=== PATIENT | female | born 1940 | race Caucasian/White ===

== ENCOUNTER 2018-12-24 05:41 | Inpatient (IN) ==
--- NOTE | 2018-12-17 10:52 | PAT Medication Instructions ---
Medication Instructions Date of Service December 17, 2018 Home Medications Lactobacillus acidophilus 1 tab PO DAILY acetaminophen [Tylenol Arthritis Pain] 1,300 mg PO Q12H PRN albuterol sulfate 1 puff INHALATION BID PRN atorvastatin 10 mg PO HS cetirizine 10 mg PO QAM levothyroxine 50 mcg PO QAM lisinopril 20 mg PO QAM meclizine 25 mg PO BID PRN DO NOT take the morning of surgery Lactobacillus acidophilus 1 tab PO DAILY cetirizine 10 mg PO QAM lisinopril 20 mg PO QAM Take morning of surgery With a small sip of water, OTHERWISE NOTHING TO EAT OR DRINK AFTER MIDNIGHT: acetaminophen [Tylenol Arthritis Pain] 1,300 mg PO Q12H PRN (if needed, may be taken up to four hours before surgery) albuterol sulfate 1 puff INHALATION BID PRN (if needed, and bring with you to the hospital) levothyroxine 50 mcg PO QAM meclizine 25 mg PO BID PRN (if needed) Take evening before surgery acetaminophen [Tylenol Arthritis Pain] 1,300 mg PO Q12H PRN (if needed) albuterol sulfate 1 puff INHALATION BID PRN (if needed) atorvastatin 10 mg PO HS meclizine 25 mg PO BID PRN (if needed) Other Notes If you have any questions please call us at [phone] or [phone] or [phone] or [phone]
--- NOTE | 2018-12-17 11:38 | Anesthesiology Consultation ---
Date of Service December 17, 2018 Assessment & Plan (1) Encounter for pre-operative examination: PCP 12/21/18 = "CT shows no concerning lesions that require any intervention now. But there are several small nodulesbecause of her history of smoking she should be checked with a CT scan again in 1 year. She is cleared for surgery." Chart Review Chart Review: Acceptable Risk for Surgery and Patient seen in Pre Admission Testing Teaching & Discussion Instructed NPO after midnight before surgery, except medications with 15 cc of water. Medication instructions provided according to the PAT guidelines. History Surgery Operation Date: 12/24/18 07:45 Proposed Procedures p C6 Corpectomy, C5-C7 Anterior Cervical Fusion with Spinal Cord Monitoring - Federico Singleton, Height/Weight Height: 5 ft 1 in Weight: 71.4 kg Allergies Allergy/AdvReac Type Severity Reaction Status Date / Time codeine AdvReac Intermediate shakes Verified 12/12/18 12:04 Medications Home Medications Medication Instructions Recorded Confirmed Last Taken Lactobacillus acidophilus 1 tab PO DAILY 12/12/18 12/12/18 Unknown acetaminophen [Tylenol Arthritis 1,300 mg PO Q12H PRN 12/12/18 12/12/18 Unknown Pain] albuterol sulfate 1 puff INHALATION BID PRN 12/12/18 12/12/18 Unknown atorvastatin 10 mg PO HS 12/12/18 12/12/18 Unknown cetirizine 10 mg PO QAM 12/12/18 12/12/18 Unknown levothyroxine 50 mcg PO QAM 12/12/18 12/12/18 Unknown lisinopril 20 mg PO QAM 12/12/18 12/12/18 Unknown meclizine 25 mg PO BID PRN 12/12/18 12/12/18 Unknown Past Medical History Medical History Cancer SKIN Chronic kidney disease STAGE 3. MONITORS LEVELS. Chronic neck and back pain Chronic obstructive pulmonary disease Using albuterol once or twice per week or before exercise (but patient no longer able to exercise due to back pain) Degenerative disc disease GERD (gastroesophageal reflux disease) Hyperlipidemia Hypertension Hypothyroidism Osteoarthritis Osteoporosis Vertigo Exercise / Class Metabolic Activity III < 4 Walking/Shop/Light housework (Limited by back pain, denies CP or SOB with ambulation) Past Family History Family History Sister Family history of diabetes mellitus Mother Family history of diabetes mellitus Past Surgical History Surgical History History of appendectomy History of cataract surgery BILATERAL History of cholecystectomy History of colonoscopy History of esophagogastroduodenoscopy (EGD) History of hysterectomy History of surgical removal of lesion SKIN CANCER FROM NOSE History of tooth extraction Past Anesthesia History No Hx of Anesthesia Complications and No Family Hx of Anesthesia Complications History of PONV No Hx of Motion Sickness and History of PONV (single episode with appy many years ago) STOP BANG Total 2 Social History Smoking Status: Former smoker tobacco type: cigarettes Smoking cigarettes per day: 1/2 PPD X 44 YEARS Do You Dip or Chew Tobacco: No Smoking End Date: 2010 Hx Alcohol Use: Yes Alcohol type: beer and wine alcohol intake frequency: holidays/special occasions only Hx Substance Use: No substance use type: does not use Review of Systems Pt denies any recent chest pain, shortness of breath, palpitations, cough, fever or URI. +UTI currently on ABX by PCP, will complete 12/21 Physical Exam Vital Signs BP: 155/81 (pt states this is high for her, takes BP at home, PCP monitoring) P: 59bpm SPO2: 94% RA T: 98.1 F R: 18 ENMT Mouth: + dentures (full set), + edentulous and + small oral opening Thyromental Distance: > or= 3.5 Finger Breadths (3.5) Mallampati Class: II Neck + short neck and + limited neck extension (moderately limited 2/2 stenosis and pain) Respiratory normal respiratory effort Auscultation: lungs clear to auscultation bilaterally Cardiovascular Rate/Rhythm: regular rhythm and + bradycardic Heart Sounds: no murmur Vessels: no carotid bruit Extremities: no edema Testing Laboratory Results 12/17/18 11:21 12/17/18 11:21 PT 10.0 Seconds (9.0-12.0) 12/17/18 11:21 INR 1.0 (0.9-1.1) 12/17/18 11:21 APTT 25.3 Seconds (21.0-31.0) 12/17/18 11:21 Urine Color Yellow 12/17/18 11:21 Urine Appearance Clear (Clear) 12/17/18 11:21 Urine pH 5.0 (4.5-7.5) 12/17/18 11:21 Ur Specific [place] 1.015 (1.000-1.030) 12/17/18 11:21 Urine Protein Negative (Negative) 12/17/18 11:21 Urine Glucose (UA) Negative (Negative) 12/17/18 11:21 Urine Ketones Negative (Negative) 12/17/18 11:21 Urine Nitrite Negative (Negative) 12/17/18 11:21 Ur Leukocyte Esterase Negative (Negative) 12/17/18 11:21 Blood Type O Positive 12/17/18 11:21 Antibody Screen NEGATIVE 12/17/18 11:21 Electrocardiogram Date: 12/17/18 Findings: + SB @ (58) Chest X-Ray Date: 12/14/18 IMPRESSION: 1. No acute findings in the chest. 2. Density at the right lung base, near the right heart border, is favored to represent overlap of structures with epicardial fat pad, though a nodules not excluded. Consider CT of the chest for further evaluation. *note sent to PCP re: abnormal CXR. Stress Test Date: 03/18/15 Type: DSE DSE is normal without EKG or echo evidence of inducible ischemia. No chest pain occurred with this test. Adequate dobutamine stress test is 86% of the age- predicted maximal target heart rate was obtained. Other Testing CT Chest w/o Contrast Impression: No lesion to correlate with the finding on recent chest radiograph, which probably represented overlapping structures or epicardial fat. Scattered small solid pulmonary nodules, measuring up to 5mm. Per the Fleischner Society Guidelines, for a low risk patient, no additional follow up is recommended. For a high risk patient, consider optional CT follow up in 12 months.
[2018-12-17 13:38] LABS: Basophils # (auto) 0.03 K/uL (0-0.2); Basophils % (auto) 0.3 %; Eosinophils % (auto) 2.3 %; Hematocrit (blood only) 41.6 % (37-47); Hemoglobin 14.1 g/dL (12.0-16.0); Immature Granulocytes # (auto) 0.02 K/uL (0.00-0.02); Immature Granulocytes % (auto) 0.2 %; Lymphocytes # (auto) 3.46 K/uL (1.2-3.4); Lymphocytes % (auto) 40.2 %; Mean Corpuscular Hgb Conc 33.9 g/dL (32-36); Mean Corpuscular Volume 95.2 fL (80-100); Mean Platelet Volume 12.8 fL (7.4-10.4); Monocytes # (auto) 0.84 K/uL (0.11-0.59); Monocytes % (auto) 9.8 %; Neutrophils # (auto) 4.05 K/uL (1.4-6.5); Neutrophils % (auto) 47.2 %; Platelet Count 183 K/uL (130-400); RDW Coefficient of Variation 12.8 % (11.5-14.5); RDW Standard Deviation 44.6 fL (36.4-46.3); Red Blood Count 4.37 M/uL (4.2-5.4)
[2018-12-17 13:46] LABS: Partial Thromboplastin Ratio 0.9; Partial Thromboplastin Time 25.3 Seconds (21.0-31.0)
[2018-12-17 14:07] LABS: Appearance Urine Clear (Clear); Bilirubin Urine Negative (Negative); Blood Urine Negative (Negative); Color Urine Yellow; Glucose Urine UA Negative (Negative); Ketones Urine Negative (Negative); Leukocyte Esterase Urine Negative (Negative); Nitrite Urine Negative (Negative); Protein Urine Negative (Negative); Specific Gravity Urine 1.015 (1.000-1.030); Urobilinogen Urine Negative (Negative)
[2018-12-17 14:09] LABS: BUN Creatinine Ratio 12.7 (10-20); Calcium 9.8 mg/dl (8.5-10.1); Creatinine Clr Calc Pharmacy 41.1 ml/min; Est GFR (Non-African American) 52.6; Potassium 4.1 mmol/L (3.5-5.1)
[2018-12-24] MEDS ORDERED: LR 15ML/HR IV SCH (06:00)
[2018-12-24] MEDS ORDERED: CEFAZOLIN 1000MG 1,000 MG/7.5 ML SYR IV SCH (06:00)
[2018-12-24] MEDS ORDERED: fentaNYL citrate 100 MCG/2 ML VIAL ONE ×3 (06:37→08:25)
[2018-12-24] MEDS ORDERED: MIDAZOLAM HCL 1 MG/ML 2ML VIAL ONE (06:38)
[2018-12-24] MEDS ORDERED: BACITRACIN INJ 50,000 UNIT VIAL ONE (07:00)
[2018-12-24] MEDS ORDERED: ATROPINE SULFATE 0.1 MG/ML 10ML SYR IV PRN (07:26)
[2018-12-24] MEDS ORDERED: PROMETHAZINE HCL 12.5 MG in SODIUM CHLORIDE 0.9% 50 ML IV PRN (07:26)
[2018-12-24] MEDS ORDERED: METOCLOPRAMIDE HCL INJ 5 MG/ML 2 ML VIAL IV PRN (07:26)
[2018-12-24] MEDS ORDERED: ePHEDrine sulfate 50 MG/ML AMP IV PRN (07:26)
[2018-12-24] MEDS ORDERED: ONDANSETRON INJ 2 MG/ML 2 ML VIAL IV PRN ×2 (07:26→11:07)
[2018-12-24] MEDS ORDERED: HYDROmorphone INJ 1 MG/ML SYRINGE IV PRN (07:26)
--- NOTE | 2018-12-24 07:34 | History & Physical Bridge Note ---
Date of Service December 24, 2018 History & Physical Bridge Note I have examined the patient, reviewed the History & Physical and in the interval since the performance of the History & Physical I have noted the following changes of clinical significance: no changes noted
--- NOTE | 2018-12-24 07:35 | History & Physical Report ---
Date of Service December 24, 2018 Assessment & Plan (1) Cervical stenosis of spinal canal: C6 corpectomy anterior discectomy and fusion C5-C7 Present on Admission?: Yes History of Present Illness Chief Complaint: Neck and arm pain Primary Care Provider: MAURICIO Shafer This is a 70-year-old female who presents with chronic persistent neck and arm pain. After failing extensive course of nonoperative care is here for surgical intervention. Allergies Allergy/AdvReac Type Severity Reaction Status Date / Time codeine AdvReac Intermediate shakes Verified 12/24/18 06:03 Home Medications Home Medications Medication Instructions Recorded Confirmed Type acetaminophen [Tylenol Arthritis 1,300 mg PO Q12H PRN 12/12/18 12/24/18 History Pain] albuterol sulfate 1 puff INHALATION BID PRN 12/12/18 12/24/18 History atorvastatin 10 mg PO HS 12/12/18 12/24/18 History cetirizine 10 mg PO QAM 12/12/18 12/24/18 History levothyroxine 50 mcg PO QAM 12/12/18 12/24/18 History lisinopril 20 mg PO QAM 12/12/18 12/24/18 History meclizine 25 mg PO BID PRN 12/12/18 12/24/18 History Past Med/Surg History Medical History Cancer SKIN Chronic kidney disease STAGE 3. MONITORS LEVELS. Chronic neck and back pain Chronic obstructive pulmonary disease Using albuterol once or twice per week or before exercise (but patient no longer able to exercise due to back pain) Degenerative disc disease GERD (gastroesophageal reflux disease) Hyperlipidemia Hypertension Hypothyroidism Osteoarthritis Osteoporosis Vertigo Surgical History History of appendectomy History of cataract surgery BILATERAL History of cholecystectomy History of colonoscopy History of esophagogastroduodenoscopy (EGD) History of hysterectomy History of surgical removal of lesion SKIN CANCER FROM NOSE History of tooth extraction Family History Sister Family history of diabetes mellitus Mother Family history of diabetes mellitus Social History Preferred Language: Turkmen Communication Ability: Effective Senior Sharepoint Architect Required: No Beliefs That Will Affect Care: Islam Islam Beliefs: SHINTO - INDUSTRIAL NURSE PRE OP Current Living Situation: Spouse Other Information That Helps Us Care for You: No Feels Safe at Home: Yes Safety Concerns: Feels Safe At This Time Smoking Status: Former smoker Tobacco Type: cigarettes ; Cigarettes Per Day: 1/2 PPD X 44 YEARS ; Do You Dip or Chew Tobacco: No ; Smoking End Date: 2010 ; Second Hand Exposure: No ; Tobacco Cessation Education Requested by Patient: No Hx Alcohol Use: Yes Alcohol type: beer and wine Hx Substance Use: No Physical Exam Physical Exam: Patient is alert and oriented neurologically intact. Results & Data Vital Signs (Past 12 Hours) Vital Signs Temp Pulse Resp BP Pulse Ox 12/24/18 06:10 36.6 C 63 20 186/80 H 96
[2018-12-24] MEDS ORDERED: HYDROmorphone INJ 2 MG/ML SYR/VIAL ONE (08:07)
[2018-12-24] MEDS ORDERED: DEXAMETHASONE SOD INJ 4 MG/ML VIAL ONE (08:12)
[2018-12-24] MEDS ORDERED: SUCCINYLCHOLINE CHLORIDE 20 MG/ML 10 ML VIAL ONE (08:12)
[2018-12-24] MEDS ORDERED: ROCURONIUM BROMIDE 10 MG/ML 5 ML VIAL ONE (08:12)
[2018-12-24] MEDS ORDERED: NEOSTIGMINE METHYLSULFATE 1 MG/ML 10ML VIAL ONE (08:12)
[2018-12-24] MEDS ORDERED: ONDANSETRON INJ 2 MG/ML 2 ML VIAL ONE (08:12)
[2018-12-24] MEDS ORDERED: PROPOFOL IV EMULSION 10 MG/ML 20 ML VIAL IV ONE (08:12)
[2018-12-24] MEDS ORDERED: GLYCOPYRROLATE 0.2 MG/ML VIAL ONE (08:12)
[2018-12-24] MEDS ORDERED: LIDOCAINE HCL 2% 2 ML VIAL/AMP(20MG/ML) INFIL ONE (08:12)
[2018-12-24] MEDS ORDERED: LARYING-O-JET KIT (LTA) ONE (08:45)
[2018-12-24] MEDS ORDERED: FLOSEAL HEMOSTATIC MATRIX 10ML TOP ONE (09:04)
--- NOTE | 2018-12-24 09:23 | Operative Report ---
Post Operative Report Pre & Post Diagnosis Operation Date: 12/24/18 07:45 Pre-Op Diagnosis: Cervical spinal stenosis with myeloradiculopathy Post-Op Diagnosis: Same Procedure Operation Date: 12/24/18 07:45 Actual Procedures #1 anterior cervical corpectomy C6 with bilateral foraminotomies. #2 anterior cervical arthrodesis C5-C7. #3 placement of titanium Spira cage 19 mm in height C5-C7. #4 placement of freitas plate and screws from C5-C7. #5 placement of locally harvested morselized autograft combined with DBM and interbody cage. Surgeon Federico Singleton, Marketing Mgr Winsome Zuleta Estimated Blood Loss 25 Findings Consistent with Post-Op Diagnosis Specimens None Indications This is a 78-year-old female presents with above-mentioned diagnosis after failing extensive course of nonoperative care is here for surgical intervention. Description of Procedure Patient was met with identified and informed consent obtained. She was then taken to the operative suite underwent intubation placed in supine position Moisés table with a Sanchez repairer cylinder heads. All bony prominences well-padded eyes inspected to ensure no external pressure placed upon the peer at this point the anterior cervical spine is prepped and draped in normal sterile fashion. The assistance of fluoroscopy identified the C6 vertebral body and a transverse incision was placed along the right anterior aspect of the cervical spinal sinus region. Sharp dissection with the assistance of bipolar left cautery was performed down to and exposing the anterior cervical spine from C5-C7. Self- retaining retractors placed. Then performed a complete discectomy of C5-6 out to the uncovertebral joints bilaterally followed by see 6 7. [place] distracting pins were then placed in C5 and C7 to distract across the C6 vertebral body. A complete corpectomy was then performed including removal of all posterior annular fibers longitudinal ligament and bilateral foraminotomies performed. Endplates were then burred to subcortical bleeding bone and a 19 mm Spira titanium cage filled with local autograft and DBM tapped in position. Dis traction apparatus was removed and a freitas plate and screws applied with the assistance of fluoroscopy. Incision was then copiously irrigated explored to ensure no damage to surrounding structures remaining bleeding. 10 round RITA drain inserted. Incision was then closed with 2 Vicryl in the fashion of 4 Monocryl for final skin closure. Steri-Strip sterile dressings placed. Patient will continue to PACU stable condition. Please note Winsome Zuleta present all the entire procedure involved the patient positioning complex portions of the surgery and final skin closure. Lastly spinal cord monitoring was utilized that procedure no changes noted. I attest to the content of the Intraoperative Record and any orders documented therein. Any exceptions are noted below.
[2018-12-24] MEDS ORDERED: ESMOLOL HCL INJ 10 MG/ML 10ML VIAL IV ONE (09:32)
[2018-12-24] MEDS ORDERED: PROPOFOL IV EMULSION 10 MG/ML 100 ML VIAL IV ONE (09:34)
--- NOTE | 2018-12-24 09:49 | Fluoroscopy Report ---
FL cervical 2-3V CLINICAL HISTORY: C6 CORPECTOMY,C5-C7 ACDF COMPARISON STUDY: None FLUOROSCOPY TIME: 9 seconds. NUMBER OF FLUOROSCOPIC IMAGES: 2 FINDINGS: 2 fluoroscopic spot images reveal postsurgical changes of a C6 corpectomy and C5-C7 anterio r cervical fusion with a bridging metallic plate. Incidental note is made of an endotracheal tube. IMPRESSION: Intraoperative fluoroscopic spot images demonstrating a C6 corpectomy and C5-C7 anterior cervical fusion Electronically signed by: Neil Lynn M.D. 12/24/2018 9:48 AM
[2018-12-24] MEDS: fentaNYL citrate 100 MCG/2 ML VIAL IV PRN ×4 (09:57→10:12)
--- NOTE | 2018-12-24 10:27 | Anesthesiology Progress Note ---
Date of Service December 24, 2018 Anesthesia Post Procedure Vital Signs Vital Signs: Temp Pulse Pulse Resp BP BP Pulse Ox 12/24/18 10:20 70 15 167/63 H 97 12/24/18 10:10 60 13 173/62 H 96 12/24/18 10:00 59 L 15 176/67 H 97 12/24/18 09:50 69 16 181/70 H 98 12/24/18 09:40 72 16 180/74 H 98 12/24/18 09:30 36.6 C 70 17 187/75 H 98 12/24/18 06:10 36.6 C 63 20 186/80 H 96 Pain Intensity Bilateral Shoulder: Pain Intensity: 3 Posterior Neck: Pain Intensity: 3 Transfer of Care Handoff Completed per policy Notes Mental Status: alert / awake / arousable and participated in evaluation Patient Amnestic to Procedure: Yes Nausea / Vomiting: adequately controlled Pain: adequately controlled Airway Patency, RR, SpO2: stable & adequate BP & HR: stable & adequate Hydration State: stable & adequate Anesthetic Complications: no major complications apparent
[2018-12-24] MEDS ORDERED: DO NOT ADMINISTER PNEUMOCOCCAL VACCINE PRN (11:07)
[2018-12-24] MEDS ORDERED: HYDROmorphone INJ 0.5 MG/0.5 ML SYR IV PRN (11:07)
[2018-12-24] MEDS ORDERED: MAGNESIUM HYDROXIDE SUSP 30 ML UDC PO PRN (11:07)
[2018-12-24] MEDS ORDERED: LORazepam 0.5 MG/1 ML VIAL IV PRN (11:07)
[2018-12-24] MEDS ORDERED: DEXAMETHASONE SOD PHOSPHATE 8 MG in SYRINGE 0 ML IV PRN (11:07)
[2018-12-24] MEDS ORDERED: RACEPINEPHRINE 2.25% NEBU SOLN 0.5 ML VIAL INH PRN (11:07)
[2018-12-24] MEDS ORDERED: DiphenhydrAMINE HCL 50 MG/ML VIAL IV PRN (11:07)
[2018-12-24] MEDS ORDERED: ALBUTEROL HFA 8 GM INHALER INH PRN (11:07)
[2018-12-24] MEDS ORDERED: MECLIZINE HCL 25 MG TAB PO PRN (11:07)
[2018-12-24] MEDS ORDERED: OXYCODONE HCL IR 5 MG TAB (IMMEDIATE RELEASE) PO PRN (11:07)
[2018-12-24] MEDS ORDERED: DO NOT ADMINISTER FLU VACCINE PRN (11:07)
[2018-12-24] MEDS ORDERED: NALOXONE HCL 0.4 MG/1 ML VIAL/CARP IV PRN (11:07)
[2018-12-24] MEDS ORDERED: ACETAMINOPHEN 1300 MG PO PRN (11:07)
[2018-12-24] MEDS: SODIUM CHLORIDE 0.9% 1000ML 1,000 ML IV SCH ×2 (11:11→23:10)
[2018-12-24] MEDS ORDERED: ePHEDrine sulfate 50 MG/ML SYR ONE (11:16)
[2018-12-24] MEDS ORDERED: PHENYLEPHRINE 100MCG/ML 5ML SYR ONE (11:16)
[2018-12-24] MEDS ORDERED: HYDROmorphone INJ 0.5 MG/0.5 ML SYR ONE (11:26)
[2018-12-24] MEDS ORDERED: SCOPOLAMINE 1.5 MG TDSY TD SCH (12:00)
[2018-12-24] MEDS: CEFAZOLIN 1000MG 1,000 MG/7.5 ML SYR IV SCH ×2 (16:23→23:35)
[2018-12-24] MEDS: CHECK SCOPOLAMINE PATCH PLACEMENT SCH ×2 (16:24→23:35)
[2018-12-24] MEDS: ACETAMINOPHEN 1,000 MG/100 ML VIAL IV PRN ×2 (16:33→16:34)
[2018-12-24] MEDS: LORazepam 0.5 MG TAB PO PRN (16:40)
[2018-12-24] MEDS ORDERED: ATORVASTATIN 10 MG TAB PO SCH (21:00)
[2018-12-24] MEDS: DOCUSATE SODIUM 100 MG CAP PO SCH (21:13)
[2018-12-25] MEDS: ACETAMINOPHEN 1,000 MG/100 ML VIAL IV PRN (04:55)
[2018-12-25] MEDS ORDERED: LEVOTHYROXINE SODIUM 50 MCG TABLET PO SCH (06:30)
--- NOTE | 2018-12-25 08:19 | Anesthesiology Progress Note ---
Date of Service December 25, 2018 Anesthesia Post Procedure Vital Signs Vital Signs: Temp Pulse Pulse Pulse Resp BP BP 12/25/18 07:30 12/25/18 07:24 55 L 16 12/25/18 06:33 36.7 C 60 16 113/74 12/25/18 04:40 36.6 C 62 16 123/74 12/25/18 03:06 58 L 16 12/25/18 02:38 36.5 C 62 18 132/83 12/25/18 00:40 36.8 C 66 16 117/71 12/24/18 23:42 36.5 C 62 16 128/76 12/24/18 23:06 58 L 14 12/24/18 22:42 36.7 C 59 L 16 120/70 12/24/18 21:17 36.5 C 65 16 131/71 12/24/18 21:13 12/24/18 21:11 12/24/18 19:54 63 16 12/24/18 19:31 36.3 C L 74 16 124/73 12/24/18 17:21 36.5 C 72 16 146/74 H 12/24/18 15:30 70 16 12/24/18 15:15 36.7 C 72 18 151/74 H 12/24/18 13:51 36.4 C L 61 16 132/63 12/24/18 13:00 36.4 C L 69 16 144/74 H 12/24/18 11:52 36.4 C L 62 18 146/75 H 12/24/18 11:25 61 16 12/24/18 11:23 66 16 153/75 H 153/75 H 12/24/18 11:00 36.4 C L 88 18 166/68 H 12/24/18 10:40 36.5 C 67 20 165/60 H 12/24/18 10:30 63 18 173/58 H 12/24/18 10:20 70 15 167/63 H 12/24/18 10:10 60 13 173/62 H 12/24/18 10:00 59 L 15 176/67 H 12/24/18 09:50 69 16 181/70 H 12/24/18 09:40 72 16 180/74 H 12/24/18 09:30 36.6 C 70 17 187/75 H Pulse Ox Pulse Ox 12/25/18 07:30 98 12/25/18 07:24 96 12/25/18 06:33 98 12/25/18 04:40 98 12/25/18 03:06 98 12/25/18 02:38 98 12/25/18 00:40 98 12/24/18 23:42 98 12/24/18 23:06 96 12/24/18 22:42 98 12/24/18 21:17 99 12/24/18 21:13 97 12/24/18 21:11 88 L 12/24/18 19:54 95 12/24/18 19:31 98 12/24/18 17:21 92 12/24/18 15:30 96 12/24/18 15:15 98 12/24/18 13:51 99 12/24/18 13:00 12/24/18 11:52 98 12/24/18 11:25 99 12/24/18 11:23 97 12/24/18 11:00 98 98 12/24/18 10:40 97 12/24/18 10:30 97 12/24/18 10:20 97 12/24/18 10:10 96 12/24/18 10:00 97 12/24/18 09:50 98 12/24/18 09:40 98 12/24/18 09:30 98 Pain Intensity Bilateral Shoulder: Pain Intensity: 3 Posterior Neck: Pain Intensity: 2 Notes Mental Status: alert / awake / arousable and participated in evaluation Patient Amnestic to Procedure: Yes Nausea / Vomiting: adequately controlled Pain: adequately controlled Airway Patency, RR, SpO2: stable & adequate BP & HR: stable & adequate Hydration State: stable & adequate Anesthetic Complications: no major complications apparent and Pt Satisfied with anesthetic care
[2018-12-25] MEDS: CHECK SCOPOLAMINE PATCH PLACEMENT SCH (08:21)
[2018-12-25] MEDS: CEFAZOLIN 1000MG 1,000 MG/7.5 ML SYR IV SCH (08:21)
[2018-12-25] MEDS: DOCUSATE SODIUM 100 MG CAP PO SCH (08:21)
[2018-12-25] MEDS ORDERED: Nursing to Pharmacy Communication ONE (08:55)
[2018-12-25] MEDS ORDERED: CETIRIZINE HCL 10 MG TABLET PO SCH (09:00)
[2018-12-25] MEDS ORDERED: LISINOPRIL 20 MG TAB PO SCH (09:00)
[2018-12-25] MEDS: LORazepam 0.5 MG TAB PO PRN (09:38)
--- NOTE | 2018-12-25 10:57 | Discharge Summary ---
Date of Service December 25, 2018 Admission HPI Per Admitting Provider This is a 70-year-old female who presents with chronic persistent neck and arm pain. After failing extensive course of nonoperative care is here for surgical intervention. Principal Diagnosis Cervical spinal stenosis with myeloradiculopathy Discharge Data Allergies Allergy/AdvReac Type Severity Reaction Status Date / Time codeine AdvReac Intermediate shakes Verified 12/24/18 06:03 Procedures Performed Operation Date: 12/24/18 07:45 Actual Procedures p C6 Corpectomy, C5-C7 Anterior Cervical Fusion with Spinal Cord Monitoring(Not Applicable) - Federico Singleton DO Ordered Studies 12/24/18 07:45 FL cervical 2-3V Routine FL fluoroscopy <1hr Routine Hospital Course (1) Cervical stenosis of spinal canal: Patient is status post anterior cervical corpectomy tolerated as well as taken to orthopedic for postoperative. Postop day #1 she is swallowing well. No hoarseness. RITA drain decreasing appropriately. Arm symptoms improved. Subsequently discharged home. Discharge orders instructions from the chart for further review. Total Time Total Time Spent Total Time Spent (In Minutes): 20 minutes Discharge Plan Discharge Items Patient Disposition: Home - Self-Care Reason For Visit: Other Spondylosis with Myelopathy, Cervical Region Discharge Diagnosis: Cervical spinal stenosis with myeloradiculopathy Discharge Goals: Improve function Activity: Per 'Additional Instructions' section Non-emergency contact: Primary Care Provider Call non-emergency contact if: you have any medication questions Follow-up/Referrals: Jie Heredia CRNP [Primary Care Provider] - Diet: Regular Addtl Provider Instructions: ACTIVITY RECOMMENDATIONS: SELF CARE INSTRUCTIONS AFTER CERVICAL FUSIONS 1. No smoking. Smoking drastically decreases the chance of a solid fusion. 2. No bending, lifting more than 5 pounds, or twisting (roll like a log when turning in bed). 3. You may shower 3 days after surgery. Thoroughly dry wound. Do not soak in the tub. 4. Cervical collar: Must be worn at all times including sleeping. You may remove the brace only to bath, eat and if you are sitting in a recliner. 5. Please walk as much as you can for exercise. Gradually increase the distance that you walk as your endurance increases. SPECIAL CARE INSTRUCTIONS: VERY IMPORTANT TO READ AND REVIEW A. Do not take any anti-inflammatory medications (i.e. Indocin, Advil, Aspirin, Naprosyn, Aleve, Motrin, etc.) as these may inhibit the chance of a solid fusion. Tylenol is okay to take. B. Your surgical incision has been closed with a cosmetic suture under the skin that will dissolve in about 6 weeks. In 14 days, you can use a pair of clean scissors and cut the suture that is left outside of the skin at the ends of your incision. C. Complications are uncommon, but please contact us if you have any signs or symptoms of: 1. wound infection (fever higher than 102.5 degrees F, redness, separation of wound, drainage, or increasing pain from the incision) 2. blood clots in legs (pain, swelling, redness and warmth in legs) 3. urinary tract infection (fever higher than 102.5 degrees, burning upon urination or increased frequency of urination) 4. nerve problems (inability to walk on your toes or heels, numbness, loss of bowel or bladder control) 5. any other symptoms that concern you. D. Please call the office at if you have any concerns or questions about your operation or recovery. MANAGING PAIN AFTER SPINAL SURGERY 1. Narcotic medication is intended for short-term use and will be provided for surgical pain. Surgical pain usually lasts for a period of 4-6 weeks. Narcotic medication includes Percocet, Vicodin, Darvocet, Tylenol #3 or Lortab. 2. Longer-term pain is more appropriately treated with non-narcotic medication such as Tylenol ES. 3. Muscle spasm is not appropriately treated with narcotics. Muscle relaxers such as Soma, Flexeril or Skelaxin can be used along with Tylenol ES. 4. Remember that we all live with some "aches and pains". This is not unusual or uncommon after an injury or as we get older. 5. We will provide appropriate medication within the normal guidelines of their prescribed use. We will also be very cautious and aware of potential abuse and extended duration of patients' medication needs. 6. Please allow 2-3 days to process refills. Prescriptions will not be mailed but must be picked up at the office. FOLLOW UP VISIT: Keep your scheduled follow-up appointment. Any questions, please call the office at . Prescriptions: New oxycodone 5 mg Tablet 5 mg PO Q4H PRN (Reason: Pain) Qty: 20 RF: 0 Continued cetirizine 10 mg Tablet 10 mg PO QAM RF: 0 atorvastatin 10 mg Tablet 10 mg PO HS RF: 0 lisinopril 20 mg Tablet 20 mg PO QAM RF: 0 acetaminophen [Tylenol Arthritis Pain] 650 mg Tablet Extended Release 1,300 mg PO Q12H PRN (Reason: Pain) RF: 0 meclizine 25 mg Tablet 25 mg PO BID PRN (Reason: Vertigo) RF: 0 levothyroxine 50 mcg Tablet 50 mcg PO QAM RF: 0 albuterol sulfate 90 mcg/actuation Hfa Aerosol Inhaler 1 puff INHALATION BID PRN (Reason: SOB) RF: 0 Stand-Alone Forms: [facility] Discharge Orders: Discharge Order (Routine); Ordered 12/25/18 Ordered By: Federico Singleton Admission Data Admit Date/Time: 12/24/18 09:27 Attending Provider: Federico Singleton Admit Provider: Federico Singleton Primary Care Provider: Jie Heredia Service: Surgical Services
== END 2018-12-25 14:37 | disposition home or self-care (01) | DRG 472 ==
LOC: PAT 05:41 → 3E 09:27